=== PATIENT | male | born 1960 | race Caucasian/White ===

== ENCOUNTER 2018-12-01 11:34 | Day surgery (SDC) | payer MEDICAID, MEDICARE, OTHER ==
[~2018-12-01] VITALS: Ht 170.2 cm; Wt 102.1 kg
[~2018-12-01 11:34] MED LIST: ATOR80TA59 PO; CLOP75TA2 PO; CYCL10TA PO; FOLI1TAB11 PO; GABA-1171 PO; HYDR-643 PO; INSUHUMDS SC; KETO2AER2 TOP; LANTINJ4 SC; LIDO1CRE2 TOP; METO25TA4 PO; NS 1,000 ML IV ONE; OMEP20CA3 PO; PRAZ1CAP PO; REFR0.5D8 OP; SERT-138 PO; TOPI25TA10 PO; [UNRECOGNIZED DRUG - CODE] PO
[2018-12-01] MEDS ORDERED: LIDOCAINE 2% INJ 100 MG/5 ML SDV (FOR ANES.) As Ordered ONE (12:11)
[2018-12-01] MEDS ORDERED: PROPOFOL 200 MG/20 ML VIAL As Ordered ONE (13:22)
--- NOTE | 2018-12-01 13:45 | ROOR ---
Patient Name: Eliezer Loyn Procedure Date: 12/01/2018 1:23 PM Date of : 1960 Age: 58 Room: [facility] Gender: Male Note Status: Finalized Procedure: Total Colonoscopy to Cecum Indications: High risk colon cancer surveillance: Personal history of colonic polyps, Last colonoscopy 5 years ago Providers: Miki Truong MD Referring MD: Jeovany Abraham Md Requesting Provider: Medicines: Monitored Anesthesia Care Complications: No immediate complications. Procedure: Pre-Anesthesia Assessment: - The heart rate, respiratory rate, oxygen saturations, blood pressure, adequacy of pulmonary ventilation, and response to care were monitored throughout the procedure. The Colonoscope was introduced through the anus and advanced to the cecum, identified by appendiceal orifice and ileocecal valve. The colonoscopy was performed without difficulty. The patient tolerated the procedure well. The quality of the bowel preparation was excellent. Findings: The perianal and digital rectal examinations were normal. Non-bleeding internal hemorrhoids were found during retroflexion. The hemorrhoids were small and Grade I (internal hemorrhoids that do not prolapse). Scattered small-mouthed diverticula were found in the recto-sigmoid colon, sigmoid colon and descending colon. The exam was otherwise without abnormality on direct and retroflexion views. Impression: - Non-bleeding internal hemorrhoids. - Diverticulosis in the recto-sigmoid colon, in the sigmoid colon and in the descending colon. - The examination was otherwise normal on direct and retroflexion views. - No specimens collected. - The exam was otherwise normal to the cecum. Recommendation: - Patient has a contact number available for emergencies. The signs and symptoms of potential delayed complications were discussed with the patient. Return to normal activities tomorrow. Written discharge instructions were provided to the patient. - High fiber diet. - Discharge patient to home. - Continue present medications. - Repeat colonoscopy in 5 years for surveillance. - Return to referring physician. - The findings and recommendations were discussed with the patient's family. Miki Truong MD Miki Truong MD 12/01/2018 1:45:20 PM This report has been signed electronically. Number of Addenda: 0 Note Initiated On: 12/01/2018 1:23 PM Estimated Blood Loss: Estimated blood loss: none.
[2018-12-01 14:06] VITALS: BP 133/85
== END 2018-12-01 14:14 | disposition home or self-care (01) ==
LOC: M OPP 11:34
PROVIDERS: ATTEND Internal Medicine Gastroenterology
DX: K64.0 First degree hemorrhoids (principal); K57.30 Diverticulosis of large intestine without perforation or abscess without bleeding; Z86.010 Personal history of colon polyps

== ENCOUNTER → 2023-12-10 | Outpatient (CLI) | payer OTHER ==
[~2023-12-10] MED LIST changes: +CYCL-707 PO; -CYCL10TA PO; -NS 1,000 ML IV ONE; +OMEP1CAP73 PO; -OMEP20CA3 PO
== END ==
LOC: M SLEEP 20:00
PROVIDERS: ATTEND Physician Assistant Medical
DX: G47.33 Obstructive sleep apnea (adult) (pediatric) (principal)

== ENCOUNTER 2025-06-06 14:56 | Emergency (ER) | payer MEDICAID, MEDICARE, OTHER ==
[~2025-06-06] VITALS: Ht 170.2 cm; Wt 83.6 kg
[~2025-06-06 14:56] MED LIST changes: -LIDO1CRE2 TOP; +LIDO4CRE12 TOP; +TOPI-256 PO; -TOPI25TA10 PO
[2025-06-06 15:30] LABS: VENOUS BASE EXCESS -4.4 (-2.0-2.0); VENOUS HCO3 21.5 MMOL/L (23.0-27.0); VENOUS O2 SATURATION 77.4 % (60.0-80.0); VENOUS PARTIAL PRESSURE CO2 42.6 mmHg (38.0-50.0); VENOUS PARTIAL PRESSURE O2 44.5 mmHg (30.0-50.0); VENOUS PH 7.321 UNITS (7.330-7.430); VENOUS STANDARD HCO3 20.4 MMOL/L; VENOUS TOTAL CO2 22.8 MMOL/L (24.0-28.0)
[2025-06-06 15:39] LABS: BASO # 0.0 10^3/uL (0.0-0.2); BASO % 0.5 % (0.0-1.0); EOS # 0.1 10^3/uL (0.0-0.5); EOS % 2.3 % (0.0-3.0); LYMPH # 2.3 10^3/uL (1.5-5.0); LYMPH % 39.4 % (24.0-44.0); MONO # 0.5 10^3/uL (0.0-0.8); MONO % 7.9 % (2.0-8.0); NEUTROPHILS # 2.8 10^3/uL (1.5-8.5); NEUTROPHILS % 49.5 % (36.0-66.0); PLATELET COUNT, AUTOMATED 156 10^3/uL (150-450)
[2025-06-06 16:03] LABS: OSMOLALITY SERUM 314 MOSM/KG (280-301)
[2025-06-06 16:06] LABS: ACETONE/KETONE 0.40 MMOL/L (0.02-0.27)
[2025-06-06 16:07] LABS: ALT/SGPT 16 U/L (7.0-40); AST/SGOT 17 U/L (<34); CALCIUM LEVEL 8.9 MG/DL (8.3-10.6); CARBON DIOXIDE LEVEL 25 MMOL/L (20-31); CHLORIDE LEVEL 98 MMOL/L (98-107); CREATININE FOR GFR 0.67 MG/DL (0.70-1.30); GLOMERULAR FILTRATION RATE > 90.0 (>49); POTASSIUM SERUM 4.2 MMOL/L (3.5-5.1); SODIUM LEVEL 136 MMOL/L (136-145)
[2025-06-06] MEDS: INSULIN LISPRO (NovoLOG) PER UNIT SC STA (17:07)
[2025-06-06] MEDS: NS (Normal Saline) 0.9% 1,000 ML IV ONE (17:07)
[2025-06-06 20:39] VITALS: BP 135/99; TEMP 96.3; O2SAT 97
== END 2025-06-06 20:43 | disposition home or self-care (01) ==
LOC: M ED 14:56 → EDBD 14:56 → M ED 20:43
DX: E11.65 Type 2 diabetes mellitus with hyperglycemia (principal); I25.119 Atherosclerotic heart disease of native coronary artery with unspecified angina pectoris; I10 Essential (primary) hypertension; G47.33 Obstructive sleep apnea (adult) (pediatric); K21.9 Gastro-esophageal reflux disease without esophagitis; F10.10 Alcohol abuse, uncomplicated; Z79.4 Long term (current) use of insulin; Z79.899 Other long term (current) drug therapy
CPT/HCPCS: 80048; 80076; 82010; 82803; 83930; 85025; 93041; 94760; 96372; 99285; J1815